=== PATIENT | female | born 2000 | race Hispanic/Latino ===

== ENCOUNTER 2020-06-04 21:28 | Emergency (ER) | payer OTHER ==
[2020-06-04] MEDS ORDERED: KETOROLAC TROMETHAMINE 60 MG/2 ML VIAL ONE (22:27)
[2020-06-04] MEDS ORDERED: ORPHENADRINE CITRATE 30 MG/ML ML ONE (22:27)
== END 2020-06-04 23:36 | disposition home or self-care (01) ==
LOC: EDH 21:28
DX: S29.012A Strain of muscle and tendon of back wall of thorax, initial encounter (principal); S00.83XA Contusion of other part of head, initial encounter; V89.2XXA Person injured in unspecified motor-vehicle accident, traffic, initial encounter; Y93.89 Activity, other specified; Y92.488 Other paved roadways as the place of occurrence of the external cause; Y99.8 Other external cause status
CPT/HCPCS: 72040; 81025; 96372 ×2; 99284; J1885; J2360